=== PATIENT | male | born 1970 | race Caucasian/White ===

== ENCOUNTER 2018-10-22 08:58 | Emergency (ER) | payer SELFPAY ==
--- OUTSIDE RECORDS SUMMARY | 2018-10-22 09:01 | XMS REPORT ---
:1970 Author Organization [facility] Address [address] Thao [address] [place] [address] Care Team Providers Name Role Phone Unavailable Unavailable Unavailable Problems This patient has no known problems. Allergies, Adverse Reactions, Alerts This patient has no known allergies or adverse reactions. Medications This patient has no known medications.
--- NOTE | 2018-10-22 10:33 | RAD REPORT ---
EXAM DESCRIPTION: RAD - ENTEROSTOMY TUBE CHECK W/CONTR - 10/22/2018 10:08 am CLINICAL HISTORY: Gastrostomy tube placement FINDINGS: Contrast was administered into the percutaneous gastrostomy tube. The gastric body is opac ified. Contrast enters the duodenum. No extravasation contrast Zero fluoroscopy performed. Zero fluoroscopic spot images obtained
--- NOTE | 2018-10-22 10:40 | EDPHYS ---
Physician Documentation [facility] Name: Arvin Madden Jr Age: 48 yrs Sex: Male : 1970 Arrival Date: 10/22/2018 Time: 09:01 Bed 14 Private MD: Sage Sanchez S ED Physician Pedro Luis Coon HPI: 10/22 09:45 This 48 yrs old Male presents to ER via Ambulatory with complaints of Problem cp With Feeding Tube. 09:45 dislodged gastrostomy tube. Onset: The symptoms/episode began/occurred this morning. cp 09:45 Severity of symptoms: in the emergency department the symptoms are unchanged despite cp home interventions. Historical: - Allergies: 09:24 Levaquin; la1 09:24 Clindamycin; la1 - PMHx: 09:24 CVA; Diabetes - NIDDM; Hypertension; Kidney stones; gall stones; peg tube; dyshpagia; la1 - Immunization history:: Adult Immunizations up to date. - Social history:: Smoking status: Patient/guardian denies using tobacco. - Ebola Screening: : No symptoms or risks identified at this time. ROS: 09:48 Constitutional: Negative for body aches, chills, fever, poor PO intake. cp 09:48 Cardiovascular: Negative for chest pain. 09:48 Respiratory: Negative for cough, shortness of breath, wheezing. 09:48 Abdomen/GI: Negative for abdominal pain, nausea, vomiting, and diarrhea, black/tarry stool, rectal bleeding. 09:48 : Negative for urinary symptoms. 09:48 Skin: Negative for cellulitis, rash. 09:48 All other systems are negative. Exam: 09:49 Constitutional: The patient appears in no acute distress, alert, awake, non-toxic, well cp developed, well nourished. 09:49 Head/face: Exam is negative for obvious evidence of injury or deformity. 09:49 Eyes: Periorbital structures: appear normal, Conjunctiva: normal, no exudate, no injection, Sclera: no appreciated abnormality, Lids and lashes: appear normal, bilaterally. 09:49 ENT: External ear(s): are unremarkable, Nose: is normal, Mouth: is normal. 09:49 Chest/axilla: Inspection: normal, Palpation: is normal, no crepitus, no tenderness. 09:49 Cardiovascular: Rate: normal. 09:49 Respiratory: the patient does not display signs of respiratory distress, Respirations: normal. 09:49 Abdomen/GI: Inspection: gastric stoma noted LUQ, Bowel sounds: active, all quadrants, Palpation: soft, in all quadrants, nontender, in all quadrants. 09:49 Skin: cellulitis, is not appreciated, no rash present. Vital Signs: 09:25 BP 116 / 88; Pulse 76; Resp 18; Pulse Ox 98% on R/A; Weight 81.19 kg; Height 6 ft. 0 la1 in. (182.88 cm); 11:07 BP 118 / 87; Pulse 75; Resp 16 S; Pulse Ox 99% on R/A; jl7 09:25 Body Mass Index 24.28 (81.19 kg, 182.88 cm) la1 MDM: 09:28 Patient medically screened. cp 10:38 Data reviewed: vital signs, nurses notes, radiologic studies, plain films. cp 10:38 Test interpretation: by ED physician or midlevel provider: plain radiologic studies. 10/22 09:44 Order name: PEG Tube Check w/contrast; Complete Time: 10:59 cp 10/22 10:59 Interpretation: Report reviewed. 10/22 09:45 Order name: Wound Care: clean area around gastric tube; Complete Time: 09:53 cp Administered Medications: No medications were administered Disposition: 11:30 Chart complete. cp 17:35 Co-signature as Attending Physician, Pedro Luis Coon MD. Disposition: 10/22/18 10:39 Discharged to Home. Impression: Encounter for attention to gastrostomy - gastrostomy tube replacement. - Condition is Stable. - Discharge Instructions: Gastrostomy Tube Replacement, Gastrostomy Tube Home Guide, Adult. - Medication Reconciliation Form, Thank You Letter, Antibiotic Education, Prescription Opioid Use form. - Follow up: Emergency Department; When: As needed; Reason: Worsening of condition. - Problem is new. - Symptoms have improved. Signatures: Dispatcher [employer] EDMS Aureliano Marte RN RN la1 Leonardo Chatterjee PA PA cp Leal, Jahala, RN RN jl7 Pedro Luis Coon MD MD Corrections: (The following items were deleted from the chart) 11:08 10:39 10/22/2018 10:39 Discharged to Home. Impression: Encounter for attention to jl7 gastrostomy - gastrostomy tube replacement. Condition is Stable. Forms are Medication Reconciliation Form, Thank You Letter, Antibiotic Education, Prescription Opioid Use. Follow up: Emergency Department; When: As needed; Reason: Worsening of condition. Problem is new. Symptoms have improved. cp
--- NOTE | 2018-10-22 10:40 | ER ---
Nurse's Notes [facility] Name: Arvin Madden Jr Age: 48 yrs Sex: Male : 1970 Arrival Date: 10/22/2018 Time: 09:01 Bed 14 Private MD: Sage Sanchez S Diagnosis: Encounter for attention to gastrostomy-gastrostomy tube replacement Presentation: 10/22 09:24 Presenting complaint: Patient states: I woke up this morning and my feeding tube fell la1 on to the floor so it has probably been out for a few hours. Transition of care: patient was not received from another setting of care. Onset of symptoms was October 22, 2018. Risk Assessment: Do you want to hurt yourself or someone else? Patient reports no desire to harm self or others. Initial Sepsis Screen: Does the patient meet any 2 criteria? No. Patient's initial sepsis screen is negative. Does the patient have a suspected source of infection? No. Patient's initial sepsis screen is negative. Care prior to arrival: None. 09:24 Method Of Arrival: Ambulatory la1 09:24 Acuity: LOBITO 4 la1 Historical: - Allergies: 09:24 Levaquin; la1 09:24 Clindamycin; la1 - PMHx: 09:24 CVA; Diabetes - NIDDM; Hypertension; Kidney stones; gall stones; peg tube; dyshpagia; la1 - Immunization history:: Adult Immunizations up to date. - Social history:: Smoking status: Patient/guardian denies using tobacco. - Ebola Screening: : No symptoms or risks identified at this time. Screenin:53 Abuse screen: Denies threats or abuse. Nutritional screening: No deficits noted. jl7 Tuberculosis screening: No symptoms or risk factors identified. Fall Risk None identified. Assessment: 09:53 General: Appears in no apparent distress. uncomfortable, Behavior is calm, cooperative, jl7 appropriate for age. Pain: Denies pain. Neuro: Level of Consciousness is awake, alert, obeys commands, Oriented to person, place, time, situation. Cardiovascular: Patient's skin is warm and dry. Respiratory: Airway is patent Respiratory effort is even, unlabored, Respiratory pattern is regular, symmetrical. GI: PEG tube Site clean. Derm: Skin is pink, warm \T\ dry. Vital Signs: 09:25 BP 116 / 88; Pulse 76; Resp 18; Pulse Ox 98% on R/A; Weight 81.19 kg; Height 6 ft. 0 la1 in. (182.88 cm); 11:07 BP 118 / 87; Pulse 75; Resp 16 S; Pulse Ox 99% on R/A; jl7 09:25 Body Mass Index 24.28 (81.19 kg, 182.88 cm) la1 ED Course: 09:01 Patient arrived in ED. rg4 09:01 Sage Sanchez MD is Private Physician. rg4 09:25 Triage completed. la1 09:25 Arm band placed on left wrist. la1 09:28 Leonardo Chatterjee PA is PHCP. cp 09:28 Pedro Luis Coon MD is Attending Physician. cp 09:47 Darryl Joaquin, RN is Primary Nurse. jl7 09:53 Patient has correct armband on for positive identification. Placed in gown. Bed in low jl7 position. Call light in reach. Side rails up X 1. Pulse ox on. NIBP on. 10:09 PEG Tube Check w/contrast In Process Unspecified. EDMS 11:07 No provider procedures requiring assistance completed. Patient did not have IV access jl7 during this emergency room visit. Administered Medications: No medications were administered Outcome: 10:39 Discharge ordered by . cp 11:07 Discharged to home ambulatory. jl7 11:07 Condition: stable 11:07 Discharge instructions given to patient, family, Instructed on discharge instructions, follow up and referral plans. Demonstrated understanding of instructions, follow-up care. 11:08 Patient left the ED. jl7 Signatures: Dispatcher [employer] EDMS Aureliano Marte, RN RN la1 Leonardo Chatterjee PA PA cp Garcia, Rubi rg4 Darryl Joaquin, BRIAN RN jl7
[2018-10-22 11:15] VITALS: BP 118/87; O2SAT 99
== END 2018-10-22 11:08 | disposition home or self-care (01) ==
LOC: ER 08:58
DX: Z43.1 Encounter for attention to gastrostomy (principal); I10 Essential (primary) hypertension; Z88.1 Allergy status to other antibiotic agents; Z88.3 Allergy status to other anti-infective agents
CPT/HCPCS: 49465

== ENCOUNTER 2019-05-09 12:32 | Emergency (ER) | payer SELFPAY ==
--- OUTSIDE RECORDS SUMMARY | 2019-05-09 12:34 | XMS REPORT ---
:1970 [facility] Address [address] Thao [address] [place] [address] Care Team Providers Name Role Phone Unavailable Unavailable Unavailable Problems This patient has no known problems. Allergies, Adverse Reactions, Alerts This patient has no known allergies or adverse reactions. Medications This patient has no known medications.
--- OUTSIDE RECORDS SUMMARY | 2019-05-09 12:34 | XMS REPORT | Summary of Care ---
:1970 Author Organization [facility] Address [address] [place] [address] Care Team Providers Name Role Phone Sage Sanchez MD Primary Care Provider Reason for Visit Reason Comments Refill Request Encounter Details Date Type Department Care Team Description 04/03/2019 Refill [facility] Family Medicine Sage Sanchez MD Refill Request - [address] [place] [address] [place] [address] Allergies Active Allergy Reactions Severity Noted Date Comments Clindamycin Swelling 08/12/2015 Levofloxacin Unknown - See comments 12/05/2017 documented as of this encounter (statuses as of 04/03/2019) Medications Medication Sig Dispensed Refills Start Date End Date Status aspirin (LO-DOSE Take 81 mg by mouth 0 Active ASPIRIN) 81 mg EC daily. tablet sodium chloride Inject 20 mL 1000 mL 0 12/12/2017 Active injection intravenously every 12 (twelve) hours. tadalafil (CIALIS) 5 Take 1 tablet by 30 tablet 5 11/02/2018 Active mg tabletIndications: mouth daily. Lower urinary tract symptoms (LUTS) gabapentin 300 mg TAKE 1 CAPSULE BY 60 capsule 5 01/02/2019 Active capsuleIndications: MOUTH TWICE A DAY Cerebrovascular accident (CVA), unspecified mechanism metoprolol tartrate Take 1 tablet by 60 tablet 2 02/19/2019 Active 25 mg tablet mouth 2 (two) times daily. Hospital, Clinic, or Ordered Dose Route Frequency Start Date End Date Status Other Facility Administered Medication ceFAZolin (ANCEF) 1000 mg IVPB O.R. HOLDING ONCE 05/30/2018 Active 1,000 mg in NaCl 0.9% (NS) 50 mL ADD-VANTAGE documented as of this encounter (statuses as of 04/03/2019) Active Problems Problem Noted Date Symptomatic cholelithiasis 05/19/2018 Overview: Added automatically from request for surgery [id number] PEG tube malfunction 12/24/2017 Cholecystitis 12/11/2017 SANGITA (acute kidney injury) 12/05/2017 Hyponatremia 12/05/2017 Type 2 diabetes mellitus without complication 04/19/2016 Back pain, unspecified location 04/19/2016 HTN (hypertension) 08/12/2015 documented as of this encounter (statuses as of 04/03/2019) Social History Tobacco Use Types Packs/Day Years Used Date Never Smoker Smokeless Tobacco: Former User Snuff Comments: 1 can per week Alcohol Use Drinks/Week oz/Week Comments Yes socially Sex Assigned at Date Recorded Not on file Job Start Date Occupation Industry Not on file Not on file Not on file Travel History Travel Start Travel End No recent travel history available. documented as of this encounter Last Filed Vital Signs Not on filedocumented in this encounter Plan of Treatment Date Type Specialty Care Team Description 04/19/2019 Office Visit Family Medicine Sage Sanchez MD [address] [place] [phone] Health Maintenance Due Date Last Done Comments PNEUMOCOCCAL 0-64 YEARS COMBINED 1975 SERIES (1 of 1 - PPSV23) EYE EXAM 1979 DTaP,Tdap,and Td Vaccines (1 - 1988 Tdap) URINE MICROALBUMIN 04/22/2017 04/22/2016 FOOT EXAM 11/01/2017 11/01/2016 HgA1C 10/26/2018 04/25/2018, 12/01/2017, 04/22/2016 CREATININE (SERUM) 04/25/2019 04/25/2018, 12/25/2017, 12/24/2017, Additional history exists LDL-C 04/25/2019 04/25/2018, 12/01/2017, 04/22/2016 INFLUENZA VACCINE 05/06/2019 documented as of this encounter Results Not on filedocumented in this encounter Visit Diagnoses Diagnosis Cerebrovascular accident (CVA), unspecified mechanism documented in this encounter
--- OUTSIDE RECORDS SUMMARY | 2019-05-09 12:35 | XMS REPORT | Summary of Care ---
:1970 Author Organization [facility] Address [address] [place] [address] Care Team Providers Name Role Phone Sage Sanchez MD Primary Care Provider Reason for Referral (Routine) Status Reason Specialty Diagnoses / Referred By Referred To Procedures Contact Contact New Request Surgery Diagnoses PEG tube malfunction Sage Sanchez, Procedures CONSULT/REFERRAL GENERAL SURGERY [address] [place] [address] Reason for Visit Reason Comments Follow-up Diabetes Mellitus II Encounter Details Date Type Department Care Team Description 04/19/2019 Office Visit [facility] Family Sage Sanchez MD Type 2 diabetes mellitus without complication, with long-term current use of insulin (Primary Dx); Medicine - [place] [address] [facility] Essential hypertension; [facility] [address] [place] [phone] Allergies Active Allergy Reactions Severity Noted Date Comments Clindamycin Swelling 08/12/2015 Levofloxacin Unknown - See comments 12/05/2017 documented as of this encounter (statuses as of 04/19/2019) Medications Medication Sig Dispensed Refills Start End Date Status Date aspirin (LO-DOSE Take 81 mg by 0 Active ASPIRIN) 81 mg EC mouth daily. tablet sodium chloride Inject 20 mL 1000 mL 0 Active injection intravenously 8 every 12 (twelve) hours. tadalafil (CIALIS) Take 1 tablet by 30 tablet 5 Active 5 mg mouth daily. 9 tabletIndications: Lower urinary tract symptoms (LUTS) gabapentin 300 mg TAKE 1 CAPSULE BY 60 capsule 5 Active capsuleIndications: MOUTH TWICE A DAY 9 Cerebrovascular accident (CVA), unspecified mechanism metoprolol tartrate Take 1 tablet by 60 tablet 5 Active 25 mg mouth 2 (two) 9 tabletIndications: times daily. Essential hypertension metoprolol tartrate Take 1 tablet by 60 tablet 2 04/19/20 Discontinued 25 mg tablet mouth 2 (two) 9 19 times daily. Hospital, Clinic, or Ordered Dose Route Frequency Start Date End Date Status Other Facility Administered Medication ceFAZolin (ANCEF) 1000 mg IVPB O.R. HOLDING ONCE 05/30/2018 Active 1,000 mg in NaCl 0.9% (NS) 50 mL ADD-VANTAGE documented as of this encounter (statuses as of 04/19/2019) Active Problems Problem Noted Date Symptomatic cholelithiasis 05/19/2018 Overview: Added automatically from request for surgery [id number] PEG tube malfunction 12/24/2017 Cholecystitis 12/11/2017 SANGITA (acute kidney injury) 12/05/2017 Hyponatremia 12/05/2017 Type 2 diabetes mellitus without complication 04/19/2016 Back pain, unspecified location 04/19/2016 HTN (hypertension) 08/12/2015 documented as of this encounter (statuses as of 04/19/2019) Social History Tobacco Use Types Packs/Day Years [...] of this encounter Last Filed Vital Signs Vital Sign Reading Time Taken Comments Blood Pressure 133/78 04/19/2019 12:10 PM CDT Pulse 68 04/19/2019 12:10 PM CDT Temperature 36.4 C (97.6 F) 04/19/2019 12:10 PM CDT Respiratory Rate 16 04/19/2019 12:10 PM CDT Oxygen Saturation - - Inhaled Oxygen Concentration - - Weight 84.4 kg (186 lb) 04/19/2019 12:10 PM CDT Height - - Body Mass Index 25.23 05/18/2018 8:40 AM CDT documented in this encounter Progress Notes Sage Sanchez MD - 04/19/2019 12:15 PM CDT Cc: HTN Chief Complaint Patient presents with Follow-up Diabetes Mellitus II Arvin Madden Jr. is a 48 year old male. Here for f/u, Allergies Arvin is allergic to clindamycin and levaquin [levofloxacin]. Medications Outpatient Medications Prior to Visit Medication Sig Dispense Refill metoprolol tartrate 25 mg tablet Take 1 tablet by mouth 2 (two) times daily. 60 tablet 2 gabapentin 300 mg capsule TAKE 1 CAPSULE BY MOUTH TWICE A DAY 60 capsule 5 tadalafil (CIALIS) 5 mg tablet Take 1 tablet by mouth daily. 30 tablet 5 aspirin (LO-DOSE ASPIRIN) 81 mg EC tablet Take 81 mg by mouth daily. sodium chloride injection Inject 20 mL intravenously every 12 (twelve) hours. 1000 mL 0 Facility-Administered Medications Prior to Visit Medication Dose Route Frequency Provider Last Rate Last Dose ceFAZolin (ANCEF) 1,000 mg in NaCl 0.9% (NS) 50 mL ADD-VANTAGE 1,000 mg IV Piggyback O.R. HOLDING ONCE Glenda Baig FNP Histories Past Medical History: Diagnosis Date Acute cholecystitis 12/05/2017 Medical mgmt and cholecystostomy Diabetes mellitus Hypertension Stroke 08/31/[address] [facility]; dysphagia, gait imbalance Past Surgical History: Procedure Laterality Date CHOLECYSTOSTOMY 12/08/2017 [facility] - IR GASTROSTOMY 09/07/2017 [facility] Social History Socioeconomic History Marital status: Spouse name: Not on file Number of children: Not on file Years of education: Not on file Highest education level: Not on file Occupational History Occupation: Disabled Comment: states filing for disability Social Needs Financial resource strain: Not on file Food insecurity: Worry: Not on file Inability: Not on file Transportation needs: Medical: Not on file Non-medical: Not on file Tobacco Use Smoking status: Never Smoker Smokeless tobacco: Former User Types: Snuff Tobacco comment: 1 can per week Substance and Sexual Activity Alcohol use: Yes Comment: socially Drug use: No Sexual activity: Not on file Lifestyle Physical activity: Days per week: Not on file Minutes per session: Not on file Stress: Not on file Relationships Social connections: Talks on phone: Not on file Gets together: Not on file Attends jain service: Not on file Active member of club or organization: Not on file Attends meetings of clubs or organizations: Not on file Relationship status: Not on file Intimate partner violence: Fear of current or ex partner: Not on file Emotionally abused: Not on file Physically abused: Not on file Forced sexual activity: Not on file Other Topics Concern Not on file Social History Narrative Not on file Family History Problem Relation Age of Onset Hypertension Mother Review of Systems Vital Signs There were no vitals taken for this visit. Physical Exam Constitutional: He appears well-developed and well-nourished. HENT: Head: Normocephalic and atraumatic. Right Ear: External ear normal. Left Ear: External ear normal. Eyes: Pupils are equal, round, and reactive to light. EOM are normal. Cardiovascular: Normal rate, regular rhythm and normal heart sounds. Pulmonary/Chest: Effort normal and breath sounds normal. Abdominal: Soft. Musculoskeletal: Normal range of motion. Neurological: Kem plegia Skin: Skin is warm. Tinea pedis, nail fungus, L foot Vitals reviewed. Assessment/Plan Stroke, htn, stable DM, stable, essentially resolved with weight loss This visit did not involve counseling and coordination that comprised more than 50% of the visit time.Electronically signed by Sage Sanchez MD at 2018 12:19 PM CDTdocumented in this encounter Plan of Treatment Date Type Specialty Care Team Description 10/18/2019 Office Visit Family Medicine Sage Sanchez MD [address] [place] [phone] Health Maintenance Due Date Last Done Comments PNEUMOCOCCAL 0-64 YEARS COMBINED 1975 SERIES (1 of 1 - PPSV23) EYE EXAM 1979 DTaP,Tdap,and Td Vaccines (1 - 1988 Tdap) URINE MICROALBUMIN 04/22/2017 04/22/2016 FOOT EXAM 11/01/2017 11/01/2016 HgA1C 10/26/2018 04/25/2018, 12/01/2017, 04/22/2016 CREATININE (SERUM) 04/25/2019 04/25/2018, 12/25/2017, 12/24/2017, Additional history exists LDL-C 04/25/2019 04/25/2018, 12/01/2017, 04/22/2016 INFLUENZA VACCINE (#1) 2019 documented as of this encounter Procedures Procedure Name Priority Date/Time Associated Diagnosis Comments POCT HEMOGLOBIN A1C Routine 04/19/2019 Type 2 diabetes Results for this TEST mellitus without procedure are in the complication, with results section. long-term current use of insulin documented in this encounter Results POCT HEMOGLOBIN A1C TEST (04/19/2019) POCT HBA1C 5.0 4 - 6 % Specimen Blood - CAPILLARY documented in this encounter Visit Diagnoses Diagnosis Type 2 diabetes mellitus without complication, with long-term current use of insulin - Primary Essential hypertension Unspecified essential hypertension PEG tube malfunction Mechanical complication of gastrostomy documented in this encounter
--- OUTSIDE RECORDS SUMMARY | 2019-05-09 12:35 | XMS REPORT | Summary of Care ---
:1970 Author Organization [facility] Address [address] [place] [address] Care Team Providers Name Role Phone Sage Sanchez MD Primary Care Provider Reason for Referral (Routine) Status Reason Specialty Diagnoses / Referred By Referred To Procedures Contact Contact New Request Surgery Diagnoses PEG tube malfunction Sage Sanchez, Procedures CONSULT/REFERRAL GENERAL SURGERY [address] [place] [address] Reason for Visit Reason Comments Follow-up Diabetes Mellitus II Encounter Details Date Type Department Care Team Description 04/19/2019 Office Visit [facility] Family Sage Sanchez MD Type 2 diabetes mellitus without complication, with long-term current use of insulin (Primary Dx); Medicine - [place] [address] [address] [facility] Essential hypertension; [facility] [address] [place] [phone] Allergies Active Allergy Reactions Severity Noted [...] Overview: Added automatically from request for surgery [id number] PEG tube malfunction 12/24/2017 Cholecystitis 12/11/2017 SANGITA [...] Surgical History: Procedure Laterality Date CHOLECYSTOSTOMY 12/08/2017 [facility] - IR GASTROSTOMY 09/07/2017 [facility] Social History Socioeconomic History Marital status: Spouse [...] file Gets together: Not on file Attends restorationism service: Not on file Active member of [...] CDTdocumented in this encounter Plan of Treatment Health Maintenance Due Date Last Done Comments [...]
--- OUTSIDE RECORDS SUMMARY | 2019-05-09 12:35 | XMS REPORT | Summary of Care ---
:1970 Author Organization [facility] Address [address] [place] [address] Care Team Providers Name Role Phone Sage Sanchez MD Primary Care Provider Reason for Referral (Routine) Status Reason Specialty Diagnoses / Referred By Referred To Procedures Contact Contact New Request Surgery Diagnoses PEG tube malfunction Sage Sanchez, Procedures CONSULT/REFERRAL GENERAL SURGERY [address] [place] [address] Reason for Visit Reason Comments Follow-up Diabetes Mellitus II Encounter Details Date Type Department Care Team Description 04/19/2019 Office Visit [facility] Family Sage Sanchez MD Type 2 diabetes mellitus without complication, with long-term current use of insulin (Primary Dx); Medicine - [place] [address] [address] [facility] Essential hypertension; [facility] [address] [place] [phone] Allergies Active Allergy Reactions Severity Noted [...] Overview: Added automatically from request for surgery [id number] PEG tube malfunction 12/24/2017 Cholecystitis 12/11/2017 SANGITA [...] Surgical History: Procedure Laterality Date CHOLECYSTOSTOMY 12/08/2017 [facility] - IR GASTROSTOMY 09/07/2017 [facility] Social History Socioeconomic History Marital status: [...] file Gets together: Not on file Attends quaker service: Not on file Active member of [...]
--- NOTE | 2019-05-09 14:20 | ER ---
Nurse's Notes [facility] Name: Arvin Madden Jr Age: 48 yrs Sex: Male : 1970 Arrival Date: 05/09/2019 Time: 12:35 Bed 25 Private MD: Sage Sanchez S Diagnosis: Encounter for fitting and adjustment of other gastrointestinal appliance and device Presentation: 05/09 12:41 Presenting complaint: Patient states: my peg tube came out, its completely out, it tw2 happened about 1145 or 12 today, i have had a peg tube for about 2 years after my stroke, i use it every day, i have no swallow function. Transition of care: patient was not received from another setting of care. Onset of symptoms was May 09, 2019. Risk Assessment: Do you want to hurt yourself or someone else? Patient reports no desire to harm self or others. Initial Sepsis Screen: Does the patient meet any 2 criteria? No. Patient's initial sepsis screen is negative. Does the patient have a suspected source of infection? No. Patient's initial sepsis screen is negative. Care prior to arrival: None. 12:41 Method Of Arrival: Ambulatory tw2 12:46 Acuity: LOBITO 4 tw2 12:54 Note pt states its 18F peg tube. tw2 Triage Assessment: 12:46 General: Appears in no apparent distress. Behavior is calm, cooperative, appropriate tw2 for age. Pain: Denies pain. Historical: - Allergies: 12:45 Clindamycin; tw2 12:45 Levaquin; tw2 - Home Meds: 12:45 aspirin 81 mg Oral chew 1 tab once daily [Active]; metoprolol tartrate 25 mg Oral tab 1 tw2 tab 2 times per day [Active]; atorvastatin 40 mg oral tab [Active]; lisinopril 40 mg Oral tab once daily [Active]; hydrochlorothiazide 12.5 mg Oral cap once daily [Active]; metformin 500 mg oral tab 1 tab daily [Active]; Colace 100 mg Oral cap 2 times per day [Active]; esomeprazole magnesium 40 mg Oral cpDR 1 cap once daily [Active]; Give all medications to PEG tube, Nothing by mouth. [Active]; glimepiride 4 mg Oral tab once daily [Active]; loratadine 10 mg Oral TbDL 1 tab once daily [Active]; metoprolol tartrate 25 mg Oral tab 1 tab 2 times per day [Active]; polyethylene glycol 3350 17 gram/dose Oral powd once daily [Active]; Tylenol #3 Oral every 6 hours [Active]; Zofran Oral every 8 hours [Active]; - PMHx: 12:45 CVA; Gall Stones; Diabetes - NIDDM; PEG tube; dyshpagia; Hypertension; Kidney stones; tw2 - Immunization history:: Adult Immunizations. - Social history:: Smoking status: . - Ebola Screening: : Patient denies travel to an Ebola-affected area in the 21 days before illness onset. Screenin:54 Abuse screen: Denies threats or abuse. Nutritional screening: No deficits noted. tw2 Tuberculosis screening: No symptoms or risk factors identified. Fall Risk Secondary diagnosis (15 points) impaired mobility, CVA. Assessment: 12:54 General: Appears in no apparent distress. Behavior is calm, cooperative, appropriate tw2 for age. Pain: Denies pain. Neuro: Level of Consciousness is awake, alert, obeys commands, Oriented to person, place, time, situation. Cardiovascular: Patient's skin is warm and dry. Respiratory: Airway is patent Respiratory effort is even, unlabored, Respiratory pattern is regular, symmetrical. GI: Abdomen is flat, stoma noted to upper right abdomen, pink and moist, minimal discharge noted. : No signs and/or symptoms were reported regarding the genitourinary system. EENT: No signs and/or symptoms were reported regarding the EENT system. Musculoskeletal: Range of motion: intact in all extremities, pt walks with cane. 13:15 Reassessment: Patient appears in no apparent distress at this time. Patient and/or iw family updated on plan of care and expected duration. Pain level reassessed. Patient is alert, oriented x 3, equal unlabored respirations, skin warm/dry/pink. new PEG tube in place, inserted by Frances Leblanc NP, awaiting placement verification. 14:38 Reassessment: pt requesting to speak to ASSISTANT CENTER DIRECTOR prior to discharge. iw Vital Signs: 12:45 BP 138 / 97; Pulse 75; Resp 18; Temp 98.6(O); Pulse Ox 98% on R/A; Weight 80.74 kg (R); tw2 Height 6 ft. 0 in. (182.88 cm) (R); Pain 0/10; 12:45 Body Mass Index 24.14 (80.74 kg, 182.88 cm) tw2 ED Course: 12:35 Patient arrived in ED. mr 12:35 Sage Sanchez MD is Private Physician. mr 12:43 Triage completed. tw2 12:43 Arm band placed on. tw2 12:49 Benji Daniels NP is PHCP. pm1 12:49 Israel Mares MD is Attending Physician. pm1 12:49 Placed in gown. Bed in low position. tw2 13:11 Aleida Bennett, BRIAN is Primary Nurse. iw 14:18 PEG Tube Check w/contrast In Process Unspecified. EDMS 14:43 No provider procedures requiring assistance completed. Patient did not have IV access iw during this emergency room visit. Administered Medications: No medications were administered Outcome: 14:19 Discharge ordered by MD. pm1 14:43 Discharged to home ambulatory, with friend. iw 14:43 Condition: good 14:43 Discharge instructions given to patient, family, Instructed on discharge instructions, follow up and referral plans. Demonstrated understanding of instructions, follow-up care. 14:44 Patient left the ED. iw Signatures: Dispatcher [employer] EDRI Alejandrina Driscoll mr Aleida Bennett RN RN iw Benji Daniels NP ASSISTANT CENTER DIRECTOR pm1 Ness Stokes RN RN tw2 Corrections: (The following items were deleted from the chart) 12:46 12:41 Acuity: LOBITO 3 tw2 tw2
--- NOTE | 2019-05-09 14:21 | EDPHYS ---
Physician Documentation [facility] Name: Arvin Madden Jr Age: 48 yrs Sex: Male : 1970 Arrival Date: 05/09/2019 Time: 12:35 Bed 25 Private MD: Sage Sanchez S ED Physician Israel Mares HPI: 05/09 13:16 This 48 yrs old Male presents to ER via Ambulatory with complaints of Peg pm1 Tube problem. 13:16 PEG tube balloon broke and the PEG tube fell out about 1 hour prior to arrival. pm1 Severity of symptoms: Pain is currently a 0 / 10. The patient has experienced similar episodes in the past, a few times. The patient has not recently seen a physician. PEG tube usually require replacement every 6 months. Historical: - Allergies: 12:45 Clindamycin; tw2 12:45 Levaquin; tw2 - Home Meds: 12:45 aspirin 81 mg Oral chew 1 tab once daily [Active]; metoprolol tartrate 25 mg Oral tab 1 tw2 tab 2 times per day [Active]; atorvastatin 40 mg oral tab [Active]; lisinopril 40 mg Oral tab once daily [Active]; hydrochlorothiazide 12.5 mg Oral cap once daily [Active]; metformin 500 mg oral tab 1 tab daily [Active]; Colace 100 mg Oral cap 2 times per day [Active]; esomeprazole magnesium 40 mg Oral cpDR 1 cap once daily [Active]; Give all medications to PEG tube, Nothing by mouth. [Active]; glimepiride 4 mg Oral tab once daily [Active]; loratadine 10 mg Oral TbDL 1 tab once daily [Active]; metoprolol tartrate 25 mg Oral tab 1 tab 2 times per day [Active]; polyethylene glycol 3350 17 gram/dose Oral powd once daily [Active]; Tylenol #3 Oral every 6 hours [Active]; Zofran Oral every 8 hours [Active]; - PMHx: 12:45 CVA; Gall Stones; Diabetes - NIDDM; PEG tube; dyshpagia; Hypertension; Kidney stones; tw2 - Immunization history:: Adult Immunizations. - Social history:: Smoking status: . - Ebola Screening: : Patient denies travel to an Ebola-affected area in the 21 days before illness onset. ROS: 13:16 Constitutional: Negative for fever, chills, and weight loss, Eyes: Negative for injury, pm1 pain, redness, and discharge, ENT: Negative for injury, pain, and discharge, Neck: Negative for injury, pain, and swelling, Cardiovascular: Negative for chest pain, palpitations, and edema, Respiratory: Negative for shortness of breath, cough, wheezing, and pleuritic chest pain, Abdomen/GI: Negative for abdominal pain, nausea, vomiting, diarrhea, and constipation, Back: Negative for injury and pain, MS/Extremity: Negative for injury and deformity, Skin: Negative for injury, rash, and discoloration, Neuro: Negative for headache, weakness, numbness, tingling, and seizure. Exam: 13:16 Constitutional: This is a well developed, well nourished patient who is awake, alert, pm1 and in no acute distress. Head/Face: Normocephalic, atraumatic. Neck: Trachea midline, no thyromegaly or masses palpated, and no cervical lymphadenopathy. Supple, full range of motion without nuchal rigidity, or vertebral point tenderness. No Meningismus. Chest/axilla: Normal chest wall appearance and motion. Nontender with no deformity. No lesions are appreciated. Cardiovascular: Regular rate and rhythm with a normal S1 and S2. No gallops, murmurs, or rubs. Normal PMI, no JVD. No pulse deficits. Respiratory: Lungs have equal breath sounds bilaterally, clear to auscultation and percussion. No rales, rhonchi or wheezes noted. No increased work of breathing, no retractions or nasal flaring. 13:16 Back: No spinal tenderness. No costovertebral tenderness. Full range of motion. Skin: Warm, dry with normal turgor. Normal color with no rashes, no lesions, and no evidence of cellulitis. MS/ Extremity: Pulses equal, no cyanosis. Neurovascular intact. Full, normal range of motion. 13:16 Abdomen/GI: Inspection: PEG stoma without any signs of infection. No redness, discharge, warmth, Bowel sounds: normal, Palpation: abdomen is soft and non-tender, in all quadrants, mass, is not appreciated, rebound tenderness, is not appreciated. 13:16 Neuro: Orientation: is normal, Motor: moves all fours. Vital Signs: 12:45 BP 138 / 97; Pulse 75; Resp 18; Temp 98.6(O); Pulse Ox 98% on R/A; Weight 80.74 kg (R); tw2 Height 6 ft. 0 in. (182.88 cm) (R); Pain 0/10; 12:45 Body Mass Index 24.14 (80.74 kg, 182.88 cm) tw2 MDM: 12:50 Patient medically screened. pm1 13:16 Data reviewed: vital signs. Data interpreted: Pulse oximetry: on room air is 98 %. pm1 Interpretation: normal. 14:18 Counseling: I had a detailed discussion with the patient and/or guardian regarding: the pm1 historical points, exam findings, and any diagnostic results supporting the discharge/admit diagnosis, radiology results, the need for outpatient follow up, to return to the emergency department if symptoms worsen or persist or if there are any questions or concerns that arise at home. 05/09 13:03 Order name: PEG Tube Check w/contrast pm1 Administered Medications: No medications were administered Disposition: 15:45 Co-signature as Attending Physician, Israel Mares MD. rn Disposition: 05/09/19 14:19 Discharged to Home. Impression: Encounter for fitting and adjustment of other gastrointestinal appliance and device. - Condition is Stable. - Discharge Instructions: PEG Tube Home Guide, [id number]. - Medication Reconciliation Form, Thank You Letter, Antibiotic Education, Prescription Opioid Use form. - Follow up: Emergency Department; When: As needed; Reason: Worsening of condition. Follow up: Private Physician; When: 2 - 3 days; Reason: Recheck today's complaints, Continuance of care, Re-evaluation by your physician. - Problem is new. - Symptoms have improved. Signatures: Dispatcher [employer] Aleida Vargas RN RN iw Nieto, Roman, MD MD rn Marinas, Patrick, CHRISTY CHEF pm1 Ness Stokes RN RN tw2 Corrections: (The following items were deleted from the chart) 14:44 14:19 05/09/2019 14:19 Discharged to Home. Impression: Encounter for fitting and iw adjustment of other gastrointestinal appliance and device. Condition is Stable. Forms are Medication Reconciliation Form, Thank You Letter, Antibiotic Education, Prescription Opioid Use. Follow up: Emergency Department; When: As needed; Reason: Worsening of condition. Follow up: Private Physician; When: 2 - 3 days; Reason: Recheck today's complaints, Continuance of care, Re-evaluation by your physician. Problem is new. Symptoms have improved. pm1
--- NOTE | 2019-05-09 14:27 | RAD REPORT ---
EXAM DESCRIPTION: RAD - ENTEROSTOMY TUBE CHECK W/CONTR - 05/09/2019 1:53 pm CLINICAL HISTORY: Peg tube placement or repositioning COMPARISON: None. FINDINGS: Two supine KUB images were obtained prior to and subsequent to retrograde injection of con trast through the repositioned PEG tube. Post-contrast injection images show wall contrast contained within the lumen of the stomach.
[2019-05-09 15:08] VITALS: BP 138/97; TEMP 98.6; O2SAT 98
== END 2019-05-09 14:44 | disposition home or self-care (01) ==
LOC: ER 12:32
DX: Z46.89 Encounter for fitting and adjustment of other specified devices (principal); I10 Essential (primary) hypertension; E11.9 Type 2 diabetes mellitus without complications; Z79.82 Long term (current) use of aspirin; Z86.73 Personal history of transient ischemic attack (TIA), and cerebral infarction without residual deficits; Z88.1 Allergy status to other antibiotic agents; Z88.3 Allergy status to other anti-infective agents
CPT/HCPCS: 49465; 99283

== ENCOUNTER 2019-07-08 14:00 | Emergency (ER) | payer SELFPAY ==
--- NOTE | 2019-07-08 15:01 | ER ---
Nurse's Notes [facility] Name: Arvin Madden Jr Age: 48 yrs Sex: Male : 1970 Arrival Date: 07/08/2019 Time: 14:02 Bed 13 Private MD: Diagnosis: Encounter for replacement of Feeding Tube Presentation: 07/08 14:11 Presenting complaint: Patient states: PEG tube came out at 1150, 18F 20cc balloon. la1 Transition of care: patient was not received from another setting of care. Onset of symptoms was July 08, 2019. Risk Assessment: Do you want to hurt yourself or someone else? Patient reports no desire to harm self or others. Initial Sepsis Screen: Does the patient meet any 2 criteria? No. Patient's initial sepsis screen is negative. Does the patient have a suspected source of infection? No. Patient's initial sepsis screen is negative. Care prior to arrival: None. 14:11 Method Of Arrival: Ambulatory la1 14:11 Acuity: LOBITO 3 la1 Triage Assessment: 14:22 General: Appears in no apparent distress. comfortable, Behavior is calm, cooperative. rb1 Historical: - Allergies: 14:12 Clindamycin; la1 14:12 Levaquin; la1 - Home Meds: 14:22 aspirin 81 mg Oral chew 1 tab once daily [Active]; atorvastatin 40 mg Oral tab rb1 [Active]; Colace 100 mg Oral cap 2 times per day [Active]; esomeprazole magnesium 40 mg Oral cpDR 1 cap once daily [Active]; glimepiride 4 mg Oral tab once daily [Active]; hydrochlorothiazide 12.5 mg Oral cap once daily [Active]; lisinopril 40 mg Oral tab once daily [Active]; loratadine 10 mg Oral TbDL 1 tab once daily [Active]; metformin 500 mg Oral tab 1 tab daily [Active]; metoprolol tartrate 25 mg Oral tab 1 tab 2 times per day [Active]; polyethylene glycol 3350 17 gram/dose Oral powd once daily [Active]; Tylenol #3 Oral every 6 hours [Active]; Zofran Oral every 8 hours [Active]; - PMHx: 14:12 CVA; Diabetes - NIDDM; dyshpagia; Gall Stones; Hypertension; Kidney stones; PEG tube; la1 - PSHx: 14:22 PEG tube; rb1 - Immunization history:: Adult Immunizations up to date. - Social history:: Smoking status: Patient/guardian denies using tobacco. - Ebola Screening: : No symptoms or risks identified at this time. - Family history:: not pertinent. - Hospitalizations: : No recent hospitalization is reported. Screenin:22 Abuse screen: Denies threats or abuse. Nutritional screening: PEG tube. Tuberculosis rb1 screening: No symptoms or risk factors identified. Fall Risk None identified. Assessment: 14:22 General: Appears in no apparent distress. comfortable, Behavior is calm, cooperative, rb1 Denies fever. Pain: Denies pain. Neuro: Level of Consciousness is awake, alert, obeys commands, Oriented to person, place, time, situation. Cardiovascular: Capillary refill < 3 seconds is brisk in bilateral fingers. Respiratory: Airway is patent Respiratory effort is even, unlabored, Respiratory pattern is regular, symmetrical. GI: Reports PEG Tube came out around 1150 this morning. : No signs and/or symptoms were reported regarding the genitourinary system. Derm: Skin is pink, warm \T\ dry. 15:09 Reassessment: Patient appears in no apparent distress at this time. Patient and/or rb1 family updated on plan of care and expected duration. Pain level reassessed. Patient is alert, oriented x 3, equal unlabored respirations, skin warm/dry/pink. Patient denies pain at this time. Vital Signs: 14:12 BP 161 / 94; Pulse 81; Resp 16; Temp 98.4; Pulse Ox 100% on R/A; Weight 79.38 kg; la1 Height 5 ft. 0 in. (152.40 cm); 15:09 BP 157 / 89; Pulse 75; Resp 17; Pulse Ox 100% on R/A; Pain 0/10; rb1 14:12 Body Mass Index 34.18 (79.38 kg, 152.40 cm) la1 ED Course: 14:02 Patient arrived in ED. as 14:12 Triage completed. la1 14:12 Arm band placed on left wrist. la1 14:14 Israel Mares MD is Attending Physician. rn 14:22 Patient has correct armband on for positive identification. Bed in low position. Call rb1 light in reach. Side rails up X 1. Pulse ox on. NIBP on. 15:16 Britney Davis, RN is Primary Nurse. rb1 15:17 No provider procedures requiring assistance completed. Patient did not have IV access rb1 during this emergency room visit. 15:34 ENTEROSTOMY TUBE CHECK W/CONTR In Process Unspecified. EDMS Administered Medications: No medications were administered Outcome: 15:00 Discharge ordered by . rn 15:17 Patient left the ED. rb1 15:17 Discharged to home ambulatory, with family. rb1 15:17 Condition: stable 15:17 Discharge instructions given to patient, Instructed on discharge instructions, follow up and referral plans. Demonstrated understanding of instructions, follow-up care, Prescriptions given X none Signatures: Dispatcher [employer] EDMS Yanique Norris Roman, MD MD rn Attema, Lee RN RN la1 Britney Davis, RN RN rb1
--- NOTE | 2019-07-08 15:01 | EDPHYS ---
Physician Documentation [facility] Name: Arvin Madden Jr Age: 48 yrs Sex: Male : 1970 Arrival Date: 07/08/2019 Time: 14:02 Bed 13 Private MD: ED Physician Israel Mares HPI: 07/08 14:22 This 48 yrs old Male presents to ER via Ambulatory with complaints of Problem rn With Feeding Tube. 14:22 Reports feeding tube balloon gave out and feeding tube fell out, reports hx of stroke rn and cannot swallow, just happened today. Reports gets feeding tube replaced every few months, this one in for 3 months. Denies other problems or complications. . Onset: The symptoms/episode began/occurred today. Severity of symptoms: At their worst the symptoms were mild in the emergency department the symptoms are unchanged. The patient has experienced similar episodes in the past. The patient has not recently seen a physician. Historical: - Allergies: 14:12 Clindamycin; la1 14:12 Levaquin; la1 - Home Meds: 14:22 aspirin 81 mg Oral chew 1 tab once daily [Active]; atorvastatin 40 mg Oral tab rb1 [Active]; Colace 100 mg Oral cap 2 times per day [Active]; esomeprazole magnesium 40 mg Oral cpDR 1 cap once daily [Active]; glimepiride 4 mg Oral tab once daily [Active]; hydrochlorothiazide 12.5 mg Oral cap once daily [Active]; lisinopril 40 mg Oral tab once daily [Active]; loratadine 10 mg Oral TbDL 1 tab once daily [Active]; metformin 500 mg Oral tab 1 tab daily [Active]; metoprolol tartrate 25 mg Oral tab 1 tab 2 times per day [Active]; polyethylene glycol 3350 17 gram/dose Oral powd once daily [Active]; Tylenol #3 Oral every 6 hours [Active]; Zofran Oral every 8 hours [Active]; - PMHx: 14:12 CVA; Diabetes - NIDDM; dyshpagia; Gall Stones; Hypertension; Kidney stones; PEG tube; la1 - PSHx: 14:22 PEG tube; rb1 - Immunization history:: Adult Immunizations up to date. - Social history:: Smoking status: Patient/guardian denies using tobacco. - Ebola Screening: : No symptoms or risks identified at this time. - Family history:: not pertinent. - Hospitalizations: : No recent hospitalization is reported. ROS: 14:22 Constitutional: Negative for fever, chills, and weight loss, Abdomen/GI: Negative for rn abdominal pain, nausea, vomiting, diarrhea, and constipation. Exam: 14:22 Constitutional: This is a well developed, well nourished patient who is awake, alert, rn and in no acute distress. Abdomen/GI: + left sided abdominal wall stoma without active bleeding, non-tender abdomen. Vital Signs: 14:12 BP 161 / 94; Pulse 81; Resp 16; Temp 98.4; Pulse Ox 100% on R/A; Weight 79.38 kg; la1 Height 5 ft. 0 in. (152.40 cm); 15:09 BP 157 / 89; Pulse 75; Resp 17; Pulse Ox 100% on R/A; Pain 0/10; rb1 14:12 Body Mass Index 34.18 (79.38 kg, 152.40 cm) la1 Procedures: 14:22 G-tube placement: a 18 [place] catheter was placed, by the ED physician, Israel Mares MD rn + return of stomach contents and patient tolerated well without pain, states he feels normal and like it is in.. MDM: 14:14 Patient medically screened. rn 14:22 Differential Diagnosis feeding tube displacement.. Data reviewed: vital signs, nurses rn notes. Counseling: I had a detailed discussion with the patient and/or guardian regarding: the historical points, exam findings, and any diagnostic results supporting the discharge/admit diagnosis, the need for outpatient follow up, to return to the emergency department if symptoms worsen or persist or if there are any questions or concerns that arise at home. Response to treatment: the patient's symptoms have markedly improved after treatment, and as a result, I will discharge patient. 15:00 Test interpretation: by ED physician or midlevel provider: plain radiologic studies, thais FOLEY with contrast shows successful placement of feeding tube, no free air.. 07/08 14:40 Order name: ENTEROSTOMY TUBE CHECK W/CONTR; Complete Time: 17:03 EDMS Administered Medications: No medications were administered Disposition: 07/08/19 15:00 Discharged to Home. Impression: Encounter for replacement of Feeding Tube. - Condition is Stable. - Discharge Instructions: PEG Tube Home Guide. - Medication Reconciliation Form, Thank You Letter, Antibiotic Education, Prescription Opioid Use form. - Follow up: Private Physician; When: As needed; Reason: Recheck today's complaints, Re-evaluation by your physician. - Problem is new. - Symptoms have improved. Signatures: Dispatcher [employer] [facility] Israel Mares MD MD rn Attema, Lee, RN RN la1 Britney Davis, RN RN rb1 Corrections: (The following items were deleted from the chart) 14:39 14:23 Abdomen 1 View (KUB)+[id number] ordered. [facility] 15:17 15:00 07/08/2019 15:00 Discharged to Home. Impression: Encounter for replacement of rb1 Feeding Tube. Condition is Stable. Discharge Instructions: PEG Tube Home Guide. Forms are Medication Reconciliation Form, Thank You Letter, Antibiotic Education, Prescription Opioid Use. Follow up: Private Physician; When: As needed; Reason: Recheck today's complaints, Re-evaluation by your physician. Problem is new. Symptoms have improved. rn
[2019-07-08 15:29] VITALS: BP 161/94; TEMP 98.4; O2SAT 100
--- NOTE | 2019-07-08 15:44 | RAD REPORT ---
EXAM DESCRIPTION: RAD - ENTEROSTOMY TUBE CHECK W/CONTR - 07/08/2019 3:31 pm CLINICAL HISTORY: confirm feeding tube placement with contrast Abdominal pain COMPARISON: ENTEROSTOMY TUBE CHECK W/CONTR dated 05/09/2019ENTEROSTOMY TUBE CHECK W/CONTR dated 05/09/20 19 FINDINGS: A single x-ray projection of the abdomen was performed. No fluoroscopy was utilized. Contr ast was injected into the existing enterostomy tube in is seen to fill the stomach, indicating approp riate placement.
--- OUTSIDE RECORDS SUMMARY | 2019-07-15 20:22 | XMS REPORT ---
:1970 [facility] Address [address] [place] [address] Dr. Thao [address] [place] [id number] Care Team Providers Name Role Phone Unavailable Unavailable Unavailable Problems This patient has no known problems. Allergies, Adverse Reactions, Alerts This patient has no known allergies or adverse reactions. Medications This patient has no known medications.
--- OUTSIDE RECORDS SUMMARY | 2019-07-15 20:23 | XMS REPORT | Summary of Care ---
:1970 Author Organization [facility] Address [address] [place] [id number] Care Team Providers Name Role Phone Sage Sanchez MD Primary Care Provider Reason for Visit Reason Comments Refill Request Encounter Details Date Type Department Care Team Description 05/11/2019 Refill [facility] Family Medicine Sage Sanchez MD Refill Request - [address] [id number] [place] [address] Allergies Active Allergy Reactions Severity Noted Date Comments Clindamycin Swelling 08/12/2015 Levofloxacin Unknown - See comments 12/05/2017 documented as of this encounter (statuses as of 05/11/2019) Medications Medication Sig Dispensed Refills Start End Date Status Date aspirin (LO-DOSE Take 81 mg by 0 Active ASPIRIN) 81 mg EC mouth daily. tablet sodium chloride Inject 20 mL 1000 mL 0 Active injection intravenously 8 every 12 (twelve) hours. tadalafil (CIALIS) Take 1 tablet by 30 tablet 5 Active 5 mg mouth daily. 9 tabletIndications: Lower urinary tract symptoms (LUTS) metoprolol tartrate Take 1 tablet by 60 tablet 5 Active 25 mg mouth 2 (two) 9 tabletIndications: times daily. Essential hypertension gabapentin 300 mg TAKE 1 CAPSULE BY 60 capsule 5 Active capsuleIndications: MOUTH TWICE A DAY 9 Cerebrovascular accident (CVA), unspecified mechanism gabapentin 300 mg TAKE 1 CAPSULE BY 60 capsule 5 05/11/20 Discontinued capsuleIndications: MOUTH TWICE A DAY 9 19 Cerebrovascular accident (CVA), unspecified mechanism Hospital, Clinic, or Ordered Dose Route Frequency Start Date End Date Status Other Facility Administered Medication ceFAZolin (ANCEF) 1000 mg IVPB O.R. HOLDING ONCE 05/30/2018 Active 1,000 mg in NaCl 0.9% (NS) 50 mL ADD-VANTAGE documented as of this encounter (statuses as of 05/11/2019) Active Problems Problem Noted Date Symptomatic cholelithiasis 05/19/2018 Overview: Added automatically from request for surgery [id number] PEG tube malfunction 12/24/2017 Cholecystitis 12/11/2017 SANGITA (acute kidney injury) 12/05/2017 Hyponatremia 12/05/2017 Type 2 diabetes mellitus without complication 04/19/2016 Back pain, unspecified location 04/19/2016 HTN (hypertension) 08/12/2015 documented as of this encounter (statuses as of 05/11/2019) Social History Tobacco Use Types Packs/Day Years [...] Office Visit Family Medicine Sage Sanchez MD [address] [place] [phone] Health Maintenance Due Date Last Done Comments PNEUMOCOCCAL 0-64 YEARS COMBINED 1975 SERIES (1 of 1 - PPSV23) EYE EXAM 1979 DTaP,Tdap,and Td Vaccines (1 - 1988 Tdap) URINE MICROALBUMIN 04/22/2017 04/22/2016 FOOT EXAM 11/01/2017 11/01/2016 CREATININE (SERUM) 04/25/2019 04/25/2018, 12/25/2017, 12/24/2017, Additional history exists LDL-C 04/25/2019 04/25/2018, 12/01/2017, 04/22/2016 INFLUENZA VACCINE (#1) 2019 HgA1C 10/20/2019 04/19/2019, 04/25/2018, 12/01/2017, Additional history exists documented as of this encounter Results Not on filedocumented in this encounter Visit Diagnoses Diagnosis Cerebrovascular accident (CVA), unspecified mechanism documented in this encounter
--- OUTSIDE RECORDS SUMMARY | 2019-07-15 20:23 | XMS REPORT | Summary of Care ---
:1970 Author Organization [facility] Address [address] [place] [address] Care Team Providers Name Role Phone Sage Sanchez MD Primary Care Provider Reason for Visit Reason Comments Refill Request Encounter Details Date Type Department Care Team Description 05/15/2019 Refill [facility] Family Medicine Sage Sanchez MD Refill Request - [address] [address] [place] [address] Allergies Active Allergy Reactions Severity Noted Date Comments Clindamycin Swelling 08/12/2015 Levofloxacin Unknown - See comments 12/05/2017 documented as of this encounter (statuses as of 05/15/2019) Medications Medication Sig Dispensed Refills Start Date End Date Status aspirin (LO-DOSE Take 81 mg by mouth 0 Active ASPIRIN) 81 mg EC daily. tablet sodium chloride Inject 20 mL 1000 mL 0 12/12/2017 Active injection intravenously every 12 (twelve) hours. tadalafil (CIALIS) 5 Take 1 tablet by 30 tablet 5 11/02/2018 Active mg tabletIndications: mouth daily. Lower urinary tract symptoms (LUTS) metoprolol tartrate Take 1 tablet by 60 tablet 5 04/19/2019 Active 25 mg mouth 2 (two) times tabletIndications: daily. Essential hypertension gabapentin 300 mg TAKE 1 CAPSULE BY 60 capsule 5 05/11/2019 Active capsuleIndications: MOUTH TWICE A DAY Cerebrovascular accident (CVA), unspecified mechanism Hospital, Clinic, or Ordered Dose Route Frequency Start Date End Date Status Other Facility Administered Medication ceFAZolin (ANCEF) 1000 mg IVPB O.R. HOLDING ONCE 05/30/2018 Active 1,000 mg in NaCl 0.9% (NS) 50 mL ADD-VANTAGE documented as of this encounter (statuses as of 05/15/2019) Active Problems Problem Noted Date Symptomatic cholelithiasis 05/19/2018 Overview: Added automatically from request for surgery [id number] PEG tube malfunction 12/24/2017 Cholecystitis 12/11/2017 SANGITA (acute kidney injury) 12/05/2017 Hyponatremia 12/05/2017 Type 2 diabetes mellitus without complication 04/19/2016 Back pain, unspecified location 04/19/2016 HTN (hypertension) 08/12/2015 documented as of this encounter (statuses as of 05/15/2019) Social History Tobacco Use Types Packs/Day Years [...] Office Visit Family Medicine Sage Sanchez MD [address] [place] [phone] Health Maintenance Due Date Last Done [...]
== END 2019-07-08 15:17 | disposition home or self-care (01) ==
LOC: ER 14:00
PROC: 0D20XUZ Change Feeding Device in Upper Intestinal Tract, External Approach (ICD-10-PCS; principal; 2019-07-08)
DX: Z43.1 Encounter for attention to gastrostomy (principal); Z88.3 Allergy status to other anti-infective agents; Z88.1 Allergy status to other antibiotic agents; E11.9 Type 2 diabetes mellitus without complications; I10 Essential (primary) hypertension; Z86.73 Personal history of transient ischemic attack (TIA), and cerebral infarction without residual deficits
CPT/HCPCS: 49465; 99283

== ENCOUNTER 2021-12-14 06:11 | Emergency (ER) | payer OTHER, SELFPAY ==
--- OUTSIDE RECORDS SUMMARY | 2021-12-14 06:14 | XMS REPORT | Continuity of Care Document ---
:1970 Author Organization [facility] Address [address] [place] [address] Care Team Providers Name Role Phone KIMO Primary Care Physician Unavailable ABEL Attending Clinician Unavailable Benji Hearn MD Attending Clinician BENJI HEARN Attending Clinician Unavailable ABEL Admitting Clinician Unavailable Payers Payer Name Policy Type Policy Number Effective Date Expiration Date S celso MEDICARE PART A [id number] 2020 \T\ B 00:00:00 Problems Condition Condition Condition Status Onset Resolution Last Treating Co mments Source Name Details Category Date Date Treatment Clinician Date Choledocho Choledocho Disease Active U malaers lithiasis lithiasis 3-21 ity of 00:00: [place] 00 [facility] Branch Hyperbilir Hyperbilir Disease Active Overview : Univers ubinemia ubinemia 3-15 Formattin ity of 00:00: g of this [place] 00 note Medical might be Branch different from the original. Added automatic ally from request for surgery [id number] Cerebrovas Cerebrovas Disease Active U nivers cular cular 2-04 ity of accident accident 00:00: [place] (CVA), (CVA), 00 Medical unspecifie unspecifie Br anch d d mechanism mechanism Symptomati Symptomati Disease Active Overview : Univers c c 9-14 Formattin ity of cholelithi cholelithi 00:00: g of this [place] asis asis 00 note Medical might be Branch different from the original. Added automatic ally from request for surgery [id number] PEG tube PEG tube Disease Active Unive rs malfunctio malfunctio 4-21 it y of n n 00:00: [place] 00 Medical Branch Cholecysti Cholecysti Disease Active U nivers tis tis 408 ity of 00:00: [place] [facility] SANGITA (acute SANGITA (acute Disease Active U nivers kidney kidney 12-05 ity of injury) injury) 00:00: [place] [facility] Hyponatrem Hyponatrem Disease Active U nivers ia ia 12-05 ity of 00:00: [place] [facility] Type 2 Type 2 Disease Active Univers diabetes diabetes 815 ity of mellitus mellitus 00:00: [place] without without 00 Medical complicati complicati Br anch on on Back pain, Back pain, Disease Active U nivers unspecifie unspecifie 15 it y of d [place] d [place] [facility] HTN HTN Disease Active 2014-09 Univers (hypertens (hypertens 10-13 it y of ion) ion) 00:00: [place] 00 Medical [facility] Allergies, Adverse Reactions, Alerts Allergy Allergy Status Severity Reaction(s) Onset Inactive Treating Comm ents Source Name Type Date Date Clinician LEVOFLOX DRUG Active Unknown-Cmnt Un rosario ACIN INGREDI 12-05 ity of 00:00: [place] [facility] Levoflox Propensi Active Unknown - Uni vers acin ty to See comments 12-05 ity of adverse 00:00: [place] reaction 00 Medical s Branch CLINDAMY DRUG Active Swelling 2014-09 Univer s MUKESH INGREDI 2-08 ity of 00:00: [place] [facility] Clindamy Propensi Active Swelling 2014-09 Univ ers mukesh ty to 2-08 ity of adverse 00:00: [place] reaction 00 Medical s Branch Social History Social Habit Start Date Stop Date Quantity Comments Source History of Snuff User University of tobacco use [place] [facility] Exposure to Not sure University of SARS-CoV-2 [place] [facility] (event) Branch Alcohol intake 2021-12-11 2021-12-11 Current drinker Unive rsity of 00:00:00 00:00:00 of alcohol [place] Medical (finding) Branch Tobacco Comment 2016-04-05 2016-04-05 1 can per week Unive rsity of 00:00:00 00:00:00 [facility] Sex [birth year] Universit y of 00:00:00 00:00:00 [facility] Smoking Status Start Date Stop Date Source Never smoker [facility] Medications Ordered Filled Start Stop Current Ordering Indication Dosage Frequency Signature Comments Components Source Medication Medication Date Date Medication? Clinician (SIG) Name Name aspirin Yes 81mg Take 81 mg Univ ers (LO-DOSE 4-08 by mouth ity of ASPIRIN) 81 08:21[place] mg EC 32 Medical tablet Branch aspirin Yes 81mg Take 81 mg Univ ers (LO-DOSE 4-08 by mouth ity of ASPIRIN) 81 08:21[place] mg EC 32 Medical tablet Branch lisinopriL Yes [id number] TAKE 1 U nivers 40 mg 3-09 TABLET BY ity of tablet 00:00: MOUTH [place] 00 EVERY DAY. Medical NEED Branch APPOINTMEN T FOR NEXT FILL glimepiride Yes [id number] 2mg Take 1 Univers 2 mg tablet 3-09 tablet by ity of 00:00: mouth [place] 00 daily with Medical breakfast. Branch lisinopriL Yes [id number] TAKE 1 U nivers 40 mg 3-09 TABLET BY ity of tablet 00:00: MOUTH [place] 00 EVERY DAY. Medical NEED Branch APPOINTMEN T FOR NEXT FILL glimepiride Yes [id number] 2mg Take 1 Univers 2 mg tablet 3-09 tablet by ity of 00:00: mouth [place] 00 daily with Medical breakfast. Branch sodium Yes 20mL Inject 20 Univer s chloride 4-09 mL ity of injection 00:00[place] intravenou [place] sly every Medical 12 Branch (twelve) hours. sodium 2018 Yes 20mL Inject 20 Univer s chloride 4-09 mL ity of injection 00:00[place] intravenou [place] sly every Medical 12 Branch (twelve) hours. Immunizations Ordered Filled Immunization Date Status Comments [facility] e Immunization Name Name Influenza Virus 2021-11-11 Completed Universit y of Vaccine Quad IM, 00:00:00 [place] Me dical Preserv and ABX Branch Free 6 MO-64 YRS Influenza Virus 2021-11-11 Completed Universit y of Vaccine [facility] IM, 00:00:00 [place] Me dical Preserv and ABX Branch Free 6 MO-64 YRS SARS-COV-2 COVID-19 2020-12-04 Completed Unive rsity of PFIZER VACCINE 00:00:00 [facility] SARS-COV-2 COVID-19 2020-12-04 Completed Unive rsity of PFIZER VACCINE 00:00:00 [facility] SARS-COV-2 COVID-19 2020-11-13 Completed Unive rsity of PFIZER VACCINE 00:00:00 [facility] SARS-COV-2 COVID-19 2020-11-13 Completed Unive rsity of PFIZER VACCINE 00:00:00 [facility] Vital Signs Vital Name Observation Time Observation Value Comments Source Systolic blood 2021-12-11 13:19:00 96 mm[Hg] Univer sity of pressure [facility] Diastolic blood 2021-12-11 13:19:00 66 mm[Hg] Unive rsity of pressure [facility] Heart rate 2021-12-11 13:19:00 89 /min [facility] Body temperature 2021-12-11 13:19:00 36.33 [facility] 2021-12-11 13:19:00 18 /min [facility] Body height 2021-12-11 13:19:00 182.9 cm [facility] Body weight 2021-12-11 13:19:00 81.466 kg [facility] BMI 2021-12-11 13:19:00 24.36 kg/m2 [facility] Oxygen saturation in 2021-12-11 13:19:00 100 /min [facility] Arterial blood by [facility] Pulse oximetry Branch Procedures This patient has no known procedures. Encounters Start End Encounter Admission Attending Care Care Encounter Source Date/Time Date/Time Type Type Clinicians Facility Department ID 2021-12-11 Outpatient R ABEL MDENRIQUE [facility] [id number] Univers 10:40:29 ASHLEY kaur [facility] 2021-12-11 2021-12-11 Office MORELIA Hearn [id number] Univers 08:00:00 08:56:09 Visit Marianna SMALLWOOD [id number] i ty of Benji FORD [id number] Parker CANTOR [id number] Ok dical [address] 2021-12-11 2021-12-11 Outpatient R [facility] [id number] Univers 08:00:00 08:56:09 MARIANNA kaur of [facility] Results This patient has no known results.
[2021-12-14] MEDS ORDERED: NA CHLORIDE 0.9% 2,000 ML ONE (07:11)
[2021-12-14] MEDS ORDERED: NA CHLORIDE 0.9% 1,000 ML ONE (07:24)
[2021-12-14] MEDS ORDERED: ONDANSETRON 4 MG/2 ML VIAL ONE (07:24)
[2021-12-14] MEDS ORDERED: PIPERACIL/TAZO 3.375 GM VIAL IV ONE (07:25)
[2021-12-14] MEDS ORDERED: NA CHLORIDE 0.9% 100 ML IV ONE (07:25)
[2021-12-14 08:15] LABS: Protime INR 1.37
[2021-12-14 08:20] LABS: AST/SGOT 12 U/L (15-37); Albumin 1.6 g/dL (3.4-5.0); Alkaline Phosphatase 321 U/L (45-117); BUN Blood Urea Nitrogen 97 mg/dL (7-18); Bicarbonate 33 mmol/L (21-32); Bilirubin Total 1.3 mg/dL (0.2-1.0); Glucose Level 161 mg/dL (74-106); Protein, Total 5.8 g/dL (6.4-8.2); Sodium Level 133 mmol/L (136-145)
[2021-12-14 08:21] LABS: ALT/SGPT < 10 U/L (12-78)
--- NOTE | 2021-12-14 08:53 | RAD REPORT ---
EXAM DESCRIPTION: RAD - Chest Single View - 12/14/2021 8:32 am CLINICAL HISTORY: PAIN COMPARISON: Portable 08/31/2017 TECHNIQUE: AP portable chest image was obtained 12/14/2021 8:32 am . FINDINGS: Lung volumes are very low. No peripheral mass or consolidation. No failure or volume overload findings. Heart and vasculature are normal. No measurable pleural effus ion and no pneumothorax. No acute bony abnormality seen. No acute aortic findings suspected. IMPRESSION: Limited portable study without acute cardiopulmonary finding.
--- NOTE | 2021-12-14 09:18 | RAD REPORT ---
EXAM DESCRIPTION: CT - Abdomen Pelvis Wo Contrast - 12/14/2021 8:48 am CLINICAL HISTORY: 3 weeks post tam;Abd pain COMPARISON: [place] Protocol dated 04/16/2016; CT-STONE PROTOCOL dated 12/08/2010 TECHNIQUE: Axial [address] imaging of the abdomen and pelvis was performed without IV contrast. No IV contrast was given because of allergy, abnormal renal function, patient refusal or physician re quest. No oral contrast administered. All CT scans are performed using dose optimization technique as appropriate and may include automated exposure control or mA/KV adjustment according to patient size. FINDINGS: Lung base atelectasis seen with no pleural effusion. Heart size is prominent with no peric ardial thickening or effusion. Moderately large right upper quadrant fluid collection is present. This distorts the normal contour o f the liver parenchyma suggesting that it is a subcapsular liver fluid collection. This is up to 5 cm in thickness with an attenuation value less than 10 HU. A 15 x 8 centimeter left upper quadrant flui d collection is present appears to be loculated and discrete from subsequently detailed ascites. This also has a very low fluid attenuation value of less than 10 Hounsfield units. A 13 x 9 centimeter fl uid collection of similar attenuation is seen in the midline upper abdomen along the inferior margin of the left lobe. This also could be subcapsular given the deformity in the inferior left lobe parenc hymal contour. This midline fluid mass displaces the fluid-filled stomach. The PEG tube is present in the stomach. No gastric wall thickening or gastric mass identifiable. No focal lesions seen in the distorted liver parenchyma. Splenic contour is not distorted and the lef t upper quadrant fluid collection is probably not subcapsular splenic collection. No focal pancreatic process. No peripancreatic fluid collection. Gallbladder is absent. No biliary tree dilatation. No hydronephrosis or suspicious renal mass. No significant adrenal finding. Isodense renal masses an d pyelonephritis cannot be excluded in the absence of IV contrast. The urinary bladder is without sig nificant finding. No dilated bowel loops or bowel wall thickening. No free air or pneumatosis. No bulky lymphadenopath y or focal soft tissue mass. Moderate amount of ascites is present in the peritoneal cavity mid and lower portion. Fluid extends i nto a small fat filled left inguinal hernia and into the origin of a fat filled right inguinal hernia . Right upper quadrant drain tube is still in place. However, the tubing is within fatty tissues with no clear communication to the ascites or the subcapsular liver findings. Correlation is needed with output from the drain to determine if there is function. Disc and bone degenerative changes are present. No acute bone finding. IMPRESSION: Two large perihepatic fluid attenuation masses (less than 10 HU) are present. Both cause distortion in the hepatic parenchymal contour suggesting that they are subhepatic in location. A similarly large homogeneous fluid collection in the left upper quadrant appears to be loculated in discrete from a moderate amount of intraabdominal ascites. This does not appear to be a subcapsular f luid collection. The suspected subhepatic collections potentially be old subcapsular hematomas. Biloma complication wo uld be consideration given the low attenuation value. Moderate ascites. Bowel within the peritoneal cavity cannot be excluded. Right upper quadrant drain tube is mostly within fatty tissues without clear CT findings of communica tion with the ascites or with the perihepatic fluid collections. Correlation can be made with quantit y and nature of the drain output.
[2021-12-14 09:48] LABS: SARS-COV-2 RT PCR NEGATIVE (NEGATIVE)
[2021-12-14 10:24] LABS: Absolute Lymphocytes (CBC) 0.8 K/uL (0.7-4.9); Hematocrit 29.4 % (39.6-49.0); Lymphocytes % 6.2 % (15.3-44.8); MPV 8.4 fL (7.6-11.3); RBC Red Blood Cell Count 3.36 M/uL (4.33-5.43)
[2021-12-14] MEDS ORDERED: NOREPINEPHRINE 4mg/D5W 250mL 4 MG/250 ML BAG IV ONE (10:53)
--- NOTE | 2021-12-14 10:58 | EDPHYS ---
Physician Documentation [facility] Name: Arvin Madden Jr Age: 51 yrs Sex: Male : 1970 Arrival Date: 12/14/2021 Time: 06:12 Bed 19 Private MD: ED Physician Israel Mares HPI: 12/14 08:08 This 51 yrs old Male presents to ER via Wheelchair with complaints of Abdominal Pain. rn 08:08 The patient presents with abdominal pain that is diffuse. Onset: The symptoms/episode rn began/occurred 3 week(s) ago. The symptoms do not radiate. Associated signs and symptoms: Pertinent positives: diarrhea, nausea, Pertinent negatives: blood in stools, chest pain, fever. 08:08 The symptoms are described as crampy. Modifying factors: The symptoms are alleviated by rn nothing, the symptoms are aggravated by movement, touching the area. Severity of pain: At its worst the pain was moderate in the emergency department the pain is unchanged. The patient has not experienced similar symptoms in the past. The patient has been recently seen by a physician:. Pt reports diffuse abd pain, assoc with nausea, reflux, diarrhea. No blood in stool. Just had cholecystectomy 3 weeks ago at [facility]. Followed up with surgeon last [place] with these symptoms, and told surgical site looks good. No fever. + decreased PO intake despite taking by feeding tube. . Historical: - Allergies: 06:49 Clindamycin; ke1 06:49 Levaquin; ke1 - PMHx: 06:49 CVA; Diabetes - NIDDM; dyshpagia; Gall Stones; Hypertension; Kidney stones; PEG tube; ke1 - PSHx: 06:49 Cholecystectomy; ke1 - Immunization history:: Flu vaccine is up to date. - Social history:: Smoking status: Patient denies any tobacco usage or history of. - Family history:: not pertinent. - Hospitalizations: : Patient was recently seen at. ROS: 08:08 Constitutional: Negative for fever, chills, and weight loss, Eyes: Negative for injury, rn pain, redness, and discharge, Cardiovascular: Negative for chest pain, palpitations, and edema, Respiratory: Negative for shortness of breath, cough, wheezing, and pleuritic chest pain, Abdomen/GI: + abd pain/nausea/diarrhea : Negative for injury, bleeding, discharge, and swelling, MS/Extremity: Negative for injury and deformity, Skin: Negative for injury, rash, and discoloration, Neuro: + generalized weakness Exam: 08:08 Constitutional: Thin male, restless but making jokes. Head/Face: Normocephalic, rn atraumatic. Eyes: Periorbital areas with no swelling, redness, or edema. ENT: dry MM Cardiovascular: Regular rate and rhythm. No pulse deficits. Respiratory: + tachypnea, no retractions Abdomen/GI: Non-distended, + tender in all 4 quadrants, no peritoneal signs, RUQ drain in place, surgical site appears non-infected, no drainage from stoma. Skin: Warm, dry MS/ Extremity: Pulses equal, no cyanosis. Neuro: Awake and alert, GCS 15 08:51 ECG was reviewed by the Attending Physician. rn Vital Signs: 06:44 BP 71 / 50; Pulse 87; Resp 25; Temp 98.2; Pulse Ox 83% on R/A; Weight 81.19 kg; Height ke1 6 ft. (182.88 cm); 07:00 BP 56 / 36; Pulse 90; ap3 07:30 BP 76 / 49; Pulse 82; ap3 07:57 BP 72 / 48; Pulse 81; Pulse Ox 100% on 3 lpm NC; ap3 08:15 BP 76 / 43; Pulse 85; Pulse Ox 100% on 2 lpm NC; ap3 08:25 BP 62 / 41; Pulse 81; Pulse Ox 98% on 2 lpm NC; ap3 08:26 BP 64 / 40; Pulse 82; Pulse Ox 96% on 2 lpm NC; ap3 08:37 BP 61 / 51; Pulse 81; Pulse Ox 99% on 2 lpm NC; ap3 09:16 BP 79 / 49; Pulse 82; Pulse Ox 100% on 4 lpm NC; ap3 09:20 BP 85 / 48; Pulse 78; Pulse Ox 100% on 4 lpm NC; ap3 09:58 BP 71 / 49; Pulse 82; Pulse Ox 100% on 4 lpm NC; ap3 10:51 BP 72 / 45; Pulse 81; Pulse Ox 96% on 4 lpm NC; ap3 11:21 BP 81 / 47; Pulse 84; Pulse Ox 96% on 4 lpm NC; ap3 11:29 BP 67 / 43; Pulse 82; ap3 11:38 BP 78 / 50; Pulse 79; ap3 11:44 BP 81 / 52; Pulse 79; ap3 11:49 BP 85 / 54; Pulse 75; ap3 11:59 BP 93 / 53; Pulse 78; ap3 12:08 BP 88 / 59; Pulse 81; Pulse Ox 97% on 4 lpm NC; ap3 12:15 BP 80 / 46; Pulse 84; ap3 12:23 BP 92 / 56; Pulse 81; Pulse Ox 100% on 4 lpm NC; ap3 12:30 BP 98 / 58; Pulse 77; ap3 06:44 Body Mass Index 24.28 (81.19 kg, 182.88 cm) ke1 08:26 provider notified of blood pressure decrease ap3 11:29 levo started ap3 11:38 levo increased to 8mcg ap3 11:44 levo increased to 10mcg ap3 11:59 levo remains at 10mcg ap3 12:15 levo increased to 12mcg. provider at bedside ap3 12:30 Levo remains at 12mcg ap3 Procedures: 10:46 Central Line: the site was prepped with Betadine, in sterile fashion, a triple lumen rn catheter was inserted, in the right internal jugular vein, in 1 attempts. placement was verified, by blood return, the site was dressed with Tegaderm, using sterile technique, the patient tolerated the procedure, well, Using ultrasound guidance. MDM: 06:59 Patient medically screened. rn 08:39 ED course: Pt appears better, joking, states feels better, but BP not improving. . rn 09:33 ED course: BP improving, reassessment complete after 2 L fluid, is getting last bolus. .rn 10:54 Differential diagnosis: bowel obstruction, post op complication, bile leak, hematoma. rn Data reviewed: vital signs, nurses notes, lab test result(s), radiologic studies, CT scan, and as a result, I will admit patient. Counseling: I had a detailed discussion with the patient and/or guardian regarding: the historical points, exam findings, and any diagnostic results supporting the discharge/admit diagnosis, radiology results, the need for further work-up and treatment in the hospital, the need to transfer to another facility, 3 weeks post op [facility]. Response to treatment: the patient's symptoms have mildly improved after treatment, and as a result, I will admit patient. Admission orders: after a detailed discussion of the patient's condition and case, the admit orders are written by me. 10:57 ED course: Sepsis reassessment complete. rn 12/14 07:07 Order name: Blood Culture Adult (2) rn 12/14 07:07 Order name: CBC with Diff; Complete Time: 12:09 rn 12/14 07:07 Order name: CMP; Complete Time: 08:39 rn 12/14 07:07 Order name: Lactate; Complete Time: 08:39 rn 12/14 07:07 Order name: Protime (+inr); Complete Time: 08:39 rn 12/14 07:07 Order name: Ptt, Activated; Complete Time: 08:39 rn 12/14 07:07 Order name: COVID-19/FLU A+B (Document "Date of Onset" if Symptomatic); Complete Time: rn 09:56 12/14 07:08 Order name: Procalcitonin; Complete Time: 09:18 rn 12/14 08:27 Order name: Chest Single View; Complete Time: 09:18 EDMS 12/14 11:29 Order name: CBC Smear Scan; Complete Time: 12:09 EDMS 12/14 07:07 Order name: Accucheck; Complete Time: 12:09 rn 12/14 07:07 Order name: Cardiac monitoring; Complete Time: 07:57 rn 12/14 07:07 Order name: EKG - Nurse/Tech; Complete Time: 07:57 rn 12/14 07:07 Order name: IV Saline Lock - Large Bore; Complete Time: 07:27 rn 12/14 07:07 Order name: Labs collected and sent; Complete Time: 07:53 rn 12/14 07:07 Order name: O2 Per Protocol; Complete Time: 07:53 rn 12/14 07:07 Order name: O2 Sat Monitoring; Complete Time: 07:27 rn 12/14 08:48 Order name: Abdomen ; Complete Time: 09:21 EDMS 12/14 10:46 Order name: XRAY Chest (1 view); Complete Time: 12:14 rn EC:51 Rate is 84 beats/min. Rhythm is regular. QRS [place] is Normal. IA interval is normal. QRS rn interval is normal. QT interval is normal. No Q waves. T waves are Normal. No ST changes noted. Clinical impression: Normal ECG. Interpreted by me. Reviewed by me. Administered Medications: 07:15 Drug: NS 0.9% (30 ml/kg) 30 ml/kg Route: IV; Rate: bolus; Site: right forearm; ke1 07:26 Drug: Zofran (Ondansetron) 4 mg Route: IVP; Site: right forearm; ke1 08:13 Follow up: Response: No adverse reaction ap3 07:40 Drug: NS 0.9% (30 ml/kg) 30 ml/kg Route: IV; Rate: bolus; Site: left antecubital; ap3 10:10 Follow up: IV Status: Completed infusion; IV Intake: 2435ml ap3 08:12 Drug: Zosyn (piperacillin-tazobactam) 3.375 grams Route: IVPB; Infused Over: 60 mins; ap3 Site: right antecubital; 10:00 Follow up: IV Status: Completed infusion; IV Intake: 100ml ap3 11:29 Drug: Levophed (norepinephrine) (4 mg/250 mL D5W 4 mcg/min Route: IV; Rate: calculated ap3 rate; Site: right jugular; 12:54 Follow up: IV Status: Infusion continued upon transfer ap3 12:56 Not Given (med not available prior to transferr): D5-1/2 NS with KCl 20 mEq/L 1000 ml ap3 IV at 100 ml/hr continuous Disposition Summary: 12/14/21 10:57 Transfer Ordered Transfer Location: [facility] rn Reason: Higher level of care rn Condition: Stable rn Problem: new rn Symptoms: have improved rn Accepting Physician: Dr. Wooten(12/14/21 12:56) ap3 Diagnosis - Acute kidney failure, unspecified rn - Intraperitoneal fluid collection rn - Hypotension, unspecified rn - Severe sepsis with septic shock rn Forms: - Medication Reconciliation Form rn - SBAR form rn clinician time excluding procedures: 10:54 Critical care time: Bedside Care: 35 minutes, Family Intervention: 5 minutes. Total rn time: 40 minutes Signatures: Dispatcher [employer] EDMO Israel Mares MD MD rn Prokisch, Amanda RN RN ap3 Jaciel Lund, RN RN ke1 Corrections: (The following items were deleted from the chart) 08: 07:08 Chest Single View+RAD.RAD.BRZ ordered. EDMS EDMS 08:48 07:08 Abdomen Pelvis W Con+CT.RAD.BRZ ordered. EDMS EDMS 10:46 10:46 Central Line: the site was prepped with Betadine, in sterile fashion, a triple rn lumen catheter was inserted, in the right internal jugular vein, in 1 attempts. placement was verified, by blood return, the site was dressed with Tegaderm, using sterile technique, the patient tolerated the procedure, well, rn 10:57 10:57 Dr. Wooten rn rn 12:56 10:57 Dr. Wooten rn ap3
--- NOTE | 2021-12-14 10:58 | ER ---
Nurse's Notes [facility] Name: Arvin Madden Jr Age: 51 yrs Sex: Male : 1970 Arrival Date: 12/14/2021 Time: 06:12 Bed 19 Private MD: Diagnosis: Acute kidney failure, unspecified;Intraperitoneal fluid collection;Hypotension, unspecified;Severe sepsis with septic shock Presentation: 12/14 06:44 Chief complaint: Patient states: N/v and diarrhea since 3 weeks after tam surgery. ke1 Coronavirus screen: Vaccine status: Patient reports receiving the 2nd dose of the covid vaccine. Ebola Screen: No symptoms or risks identified at this time. Initial Sepsis Screen: Does the patient meet any 2 criteria? No. Patient's initial sepsis screen is negative. Does the patient have a suspected source of infection? No. Patient's initial sepsis screen is negative. Risk Assessment: Do you want to hurt yourself or someone else? Patient reports no desire to harm self or others. Onset of symptoms was November 23, 2021. 06:44 Method Of Arrival: Wheelchair ke1 06:44 Acuity: LOBITO 3 ke1 Triage Assessment: 07:04 General: Appears uncomfortable, malnourished, Behavior is calm, cooperative, ke1 appropriate for age. GI: Abdomen is distended. 07:27 Pain: Complains of pain in back Pain currently is 1 out of 10 on a pain scale. at worst ke1 was 5 out of 10 on a pain scale. level that patient reports is acceptable is 3 out of 10 on a pain scale. Cardiovascular: Heart tones S1 S2. Respiratory: Airway is patent Respiratory effort is even, unlabored, cyanosis oxygen \\T\\ 4 l per NC initiated. GI: Reports NPO since stroke in 2017 PEG tube and ROYA drain tube. : No deficits noted. Derm: Skin is jaundiced. Historical: - Allergies: 06:49 Clindamycin; ke1 06:49 Levaquin; ke1 - PMHx: 06:49 CVA; Diabetes - NIDDM; dyshpagia; Gall Stones; Hypertension; Kidney stones; PEG tube; ke1 - PSHx: 06:49 Cholecystectomy; ke1 - Immunization history:: Flu vaccine is up to date. - Social history:: Smoking status: Patient denies any tobacco usage or history of. - Family history:: not pertinent. - Hospitalizations: : Patient was recently seen at. Screenin:32 Abuse screen: Denies threats or abuse. Nutritional screening: No deficits noted. ke1 Tuberculosis screening: No symptoms or risk factors identified. Fall Risk No fall in past 12 months (0 pts). No secondary diagnosis (0 pts). IV access (20 points). Ambulatory Aid- None/Bed Rest/Nurse Assist (0 pts). Gait- Weak (10 pts.). Mental Status- Oriented to own ability (0 pts). Total Wright Fall Scale indicates. Assessment: 08:42 GI: Bowel sounds present X 4 quads. Abd is soft X 4 quads. ap3 09:16 Reassessment: Patient and/or family updated on plan of care and expected duration. Pain ap3 level reassessed. Patient is alert, oriented x 3, equal unlabored respirations, skin warm/dry/pink. Patient states feeling better. Patient states symptoms have improved. 09:57 General: provider updated on patient blood pressures. new orders received. . ap3 10:53 Reassessment: Patient and/or family updated on plan of care and expected duration. Pain ap3 level reassessed. Patient is alert, oriented x 3, equal unlabored respirations, skin warm/dry/pink. 11:21 Reassessment: X-Ray at bedside. ap3 12:08 Reassessment: Patient and/or family updated on plan of care and expected duration. Pain ap3 level reassessed. Patient is alert, oriented x 3, equal unlabored respirations, skin warm/dry/pink. patient updated on transfer status Patient states feeling better. Patient states symptoms have improved. 12:16 General: medication order sent to pharmacy for fulfillment . ap3 12:23 Reassessment: Patient and/or family updated on plan of care and expected duration. Pain ap3 level reassessed. Patient is alert, oriented x 3, equal unlabored respirations, skin warm/dry/pink. Vital Signs: 06:44 BP 71 / 50; Pulse 87; Resp 25; Temp 98.2; Pulse Ox 83% on R/A; Weight 81.19 kg; Height ke1 6 ft. (182.88 cm); 07:00 BP 56 / 36; Pulse 90; ap3 07:30 BP 76 / 49; Pulse 82; ap3 07:57 BP 72 / 48; Pulse 81; Pulse Ox 100% on 3 lpm NC; ap3 08:15 BP 76 / 43; Pulse 85; Pulse Ox 100% on 2 lpm NC; ap3 08:25 BP 62 / 41; Pulse 81; Pulse Ox 98% on 2 lpm NC; ap3 08:26 BP 64 / 40; Pulse 82; Pulse Ox 96% on 2 lpm NC; ap3 08:37 BP 61 / 51; Pulse 81; Pulse Ox 99% on 2 lpm NC; ap3 09:16 BP 79 / 49; Pulse 82; Pulse Ox 100% on 4 lpm NC; ap3 09:20 BP 85 / 48; Pulse 78; Pulse Ox 100% on 4 lpm NC; ap3 09:58 BP 71 / 49; Pulse 82; Pulse Ox 100% on 4 lpm NC; ap3 10:51 BP 72 / 45; Pulse 81; Pulse Ox 96% on 4 lpm NC; ap3 11:21 BP 81 / 47; Pulse 84; Pulse Ox 96% on 4 lpm NC; ap3 11:29 BP 67 / 43; Pulse 82; ap3 11:38 BP 78 / 50; Pulse 79; ap3 11:44 BP 81 / 52; Pulse 79; ap3 11:49 BP 85 / 54; Pulse 75; ap3 11:59 BP 93 / 53; Pulse 78; ap3 12:08 BP 88 / 59; Pulse 81; Pulse Ox 97% on 4 lpm NC; ap3 12:15 BP 80 / 46; Pulse 84; ap3 12:23 BP 92 / 56; Pulse 81; Pulse Ox 100% on 4 lpm NC; ap3 12:30 BP 98 / 58; Pulse 77; ap3 06:44 Body Mass Index 24.28 (81.19 kg, 182.88 cm) ke1 08:26 provider notified of blood pressure decrease ap3 11:29 levo started ap3 11:38 levo increased to 8mcg ap3 11:44 levo increased to 10mcg ap3 11:59 levo remains at 10mcg ap3 12:15 levo increased to 12mcg. provider at bedside ap3 12:30 Levo remains at 12mcg ap3 ED Course: 06:12 Patient arrived in ED. kz 06:16 Jaciel Lund, BRIAN is Primary Nurse. ke1 06:49 Triage completed. ke1 06:59 Israel Mares MD is Attending Physician. rn 07:04 Inserted saline lock: 22 gauge in right forearm, using aseptic technique. ke1 07:53 Initial lab(s) drawn, sent to lab. Inserted saline lock: 22 gauge in left antecubital aa5 area, using aseptic technique. Blood collected. 07:57 Patient has correct armband on for positive identification. Placed in gown. Bed in low ap3 position. Call light in reach. Side rails up X 1. Adult w/ patient. front end assistant on. Pulse ox on. NIBP on. 07:58 EKG done, COVID swab sent to lab. ap3 07:58 Arm band placed on right wrist. ap3 08:00 EKG done, by ED staff, reviewed by Israel Mares MD. mb7 08:01 COVID-19/FLU A+B (Document "Date of Onset" if Symptomatic) Sent. mb7 08:19 Primary Nurse role handed off by Jaciel Lund, BRIAN bd 08:31 Maria Antonia Yo, BRIAN is Primary Nurse. ap3 08:34 Chest Single View In Process Unspecified. EDMS 08:[address] via wheelchair. ap3 08:48 Abdomen In Process Unspecified. EDMS 09:36 ED physician to see patient. ap3 10:01 Assisted provider with central line placement. Set up central line tray. ap3 10:51 Assisted provider with central line placement. Triple lumen line placed in right ap3 internal jugular. Line placed by Israel Mares MD Placement verified by blood return, Dressed with Tegaderm, Patient tolerated well. Before procedure, did Practitioner(s) obtain informed consent? Yes. Patient \\T\\ family education about procedure, CLABSI prevention and S/S of infection? Yes. Time-out/Briefing performed prior to start of procedure? Yes. Was handwashing/sanitizing done immediately prior to procedure? Yes. Was patient positioned to in a way to prevent air embolism? Yes. Was procedure site sterilized? Yes, with chlorhexidine. Was the site allowed to dry? Yes. Was local anesthetic and/or sedation utilized? Yes. During the procedure, did the Practitioner(s) maintain a sterile field? Yes. Were unused ports clamped during insertion? Yes. Was a 2nd qualified MD obtained after 3 unsuccessful insertion attempts? N/A. Was blood aspirated from each lumen? Yes. After the procedure, did the Practitioner(s) clean the site and apply a sterile dressing? Yes. 11:10 initiated transfer to [facility]. bd 11:59 Report given to BRIAN Sheikh at [facility]. ap3 12:01 XRAY Chest (1 view) In Process Unspecified. EDMS 12:17 ED physician to see patient. ap3 12:55 Patient transferred, IV remains in place. ap3 Administered Medications: 07:15 Drug: NS 0.9% (30 ml/kg) 30 ml/kg Route: IV; Rate: bolus; Site: right forearm; ke1 07:26 Drug: Zofran (Ondansetron) 4 mg Route: IVP; Site: right forearm; ke1 08:13 Follow up: Response: No adverse reaction ap3 07:40 Drug: NS 0.9% (30 ml/kg) 30 ml/kg Route: IV; Rate: bolus; Site: left antecubital; ap3 10:10 Follow up: IV Status: Completed infusion; IV Intake: 2435ml ap3 08:12 Drug: Zosyn (piperacillin-tazobactam) 3.375 grams Route: IVPB; Infused Over: 60 mins; ap3 Site: right antecubital; 10:00 Follow up: IV Status: Completed infusion; IV Intake: 100ml ap3 11:29 Drug: Levophed (norepinephrine) (4 mg/250 mL D5W 4 mcg/min Route: IV; Rate: calculated ap3 rate; Site: right jugular; 12:54 Follow up: IV Status: Infusion continued upon transfer ap3 12:56 Not Given (med not available prior to transferr): D5-1/2 NS with KCl 20 mEq/L 1000 ml ap3 IV at 100 ml/hr continuous Intake: 10:00 IV: 100ml; Total: 100ml. ap3 10:10 IV: 2435ml; Total: 2535ml. ap3 Outcome: 10:57 ER care complete, transfer ordered by . rn 12:55 Transferred by ground EMS to [facility]. ap3 12:55 Condition: good 12:55 Discharge instructions given to patient, family, Instructed on the need for transfer, Demonstrated understanding of instructions. 12:56 Patient left the ED. ap3 Signatures: Dispatcher [employer] EDMS Rachel Caraballo Roman, MD MD rn Calderon, Audri, RN RN [email or web address] Maria Antonia Yo RN RN ap3 Alejandrina Herrera mb7 Jaciel Lund RN RN ke1 Mayte Knight Corrections: (The following items were deleted from the chart) 11:59 11:49 BP 93 / 53; Pulse 78bpm; levo remains at 10mcg; ap3 ap3
[2021-12-14 11:28] LABS: Anisocytosis 1+; Blood Morphology Comment NOTED (NOT SEEN); Platelet Estimate INCR; White Blood Cell Scan OK (OK)
--- NOTE | 2021-12-14 12:11 | RAD REPORT ---
EXAM DESCRIPTION: RAD - Chest Single View - 12/14/2021 11:59 am CLINICAL HISTORY: s/p right IJ central line placement COMPARISON: Portable December 14 TECHNIQUE: AP portable chest image was obtained 12/14/2021 11:59 am . FINDINGS: Right jugular central line has been placed with the tip in the mid SVC. There is no pneumo thorax present. No new or progressive pleural or parenchymal finding. Heart and vasculature are normal. IMPRESSION: Right jugular line placement with the tip in the mid SVC. No pneumothorax.
[2021-12-14] MEDS ORDERED: D5.45NS W/KCL 20MEQ 1,000 ML IV SCH (13:00)
[2021-12-14 15:36] VITALS: TEMP 98.2
[2021-12-14 16:06] VITALS: O2SAT 100
[2021-12-14 16:07] VITALS: BP 98/58
--- NOTE | 2021-12-16 11:06 | EKG ---
Test Date: 2021-12-14 Test Time: 07:55:39 Litigation Support Analyst: MB MEASUREMENT RESULTS: Intervals: Rate: 84 [place]: 154 QRSD: 100 QT: 390 QTc: 460 [place]: P: 52 [place]: 154 QRS: 52 T: 21 INTERPRETIVE STATEMENTS: Normal sinus rhythm Cannot rule out Anterior infarct, age undetermined Abnormal ECG Compared to ECG 08/31/2017 20:04:55 Left ventricular hypertrophy no longer present Myocardial infarct finding still present Electronically Signed On 12-16-21 10:58:24 CDT by Iker Davison
== END 2021-12-14 12:56 | disposition short-term general hospital (02) ==
LOC: ER 06:11
PROC: 05HM33Z Insertion of Infusion Device into Right Internal Jugular Vein, Percutaneous Approach (ICD-10-PCS; principal; 2021-12-14)
DX: N17.9 Acute kidney failure, unspecified (principal); R65.21 Severe sepsis with septic shock; R19.00 Intra-abdominal and pelvic swelling, mass and lump, unspecified site; I95.9 Hypotension, unspecified; E11.9 Type 2 diabetes mellitus without complications; I10 Essential (primary) hypertension; Z20.822 Contact with and (suspected) exposure to COVID-19; Z86.73 Personal history of transient ischemic attack (TIA), and cerebral infarction without residual deficits; Z87.442 Personal history of urinary calculi; Z88.1 Allergy status to other antibiotic agents; Z88.3 Allergy status to other anti-infective agents
CPT/HCPCS: 87040 ×2; 85025; 36415; 85610; 83605; 85730; 80053; 84145; 0240U; 74176; 71045 ×2; 36556; J2543; J7030 ×2; J2405; 93005; 99285